=== PATIENT | female | born 2000 | race Caucasian/White ===

== ENCOUNTER 2023-02-11 16:43 | Outpatient (CLI) | payer OTHER ==
[2023-02-11] MEDS ORDERED: PRENATAL + DHA1 EAC1 PO (17:05)
[2023-02-11] MEDS ORDERED: HIERRO PO (17:05)
[2023-02-12] MEDS ORDERED: AMOX-CLAV 875-1 EACH PO (07:56)
== END 2023-02-12 09:13 | disposition home or self-care (01) ==
LOC: OBS/DEL 16:43
PROVIDERS: ATTEND Obstetrics & Gynecology
DX: O47.03 False labor before 37 completed weeks of gestation, third trimester (principal); Z3A.36 36 weeks gestation of pregnancy; Z91.018 Allergy to other foods